=== PATIENT | male | born 2005 | race American Indian/Alaskan Native ===

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

== ENCOUNTER 2025-04-05 13:11 | Emergency (ER) | payer OTHER, SELFPAY ==
--- OUTSIDE RECORDS SUMMARY | 2025-04-04 15:00 | XMS_ITS | Encounter Summary ---
Author Organization [facility] Address [address] [place] [address] Care Team Providers Care Cardiovascular Technologist Name Role Phone Grant Javier MD Primary Care Provider [phone] Reason for Visit * Reason Comments Rash Penis rash Encounter Details Date Type Department Care Team ([facility] Contact Info) Description 04/04/2025 3:00 PM EST Office Visit Walk-In Clinic - [facility] [address] [place], [place] [phone] Stephanie Almonte NP [address] [place] [address], [place] Folliculitis (Primary Dx) Social History Tobacco Use Types Packs/Day Years Used Date Smoking Tobacco: Never Smokeless Tobacco: Never Alcohol Use Standard Drinks/Week Comments Not Asked 0 (1 standard drink = 0.6 oz pur e alcohol) Sex and Gender Information Value Date Recorded Sex Assigned at Not on file Legal Sex Male 6:16 PM EST Gender Identity Not on file Sexual Orientation Not on file documented as of this encounter Last Filed Vital Signs Vital Sign Reading Time Taken Comments Blood Pressure 119/61 04/04/2025 3:13 PM EST Pulse 72 04/04/2025 3:13 PM EST Temperature 37.2 C (98.9 F) 04/04/2025 3:13 PM EST Respiratory Rate 20 04/04/2025 3:13 PM EST Oxygen Saturation 99% 04/04/2025 3:13 PM EST Inhaled Oxygen Concentration - - Weight - - Height - - Body Mass Index - - documented in this encounter Progress Notes * Stephanie Almonte NP - 04/04/2025 3:00 PM EST CHIEF COMPLAINT: Rash (Penis rash) HPI: Ani Wren is a 20 y.o. old male who presents with right groin skin rash. Patient shaves notes small red bumps over the last week ROS: Remainder of the 12 point review of symptoms unremarkable except for those idenitified in the HPI. 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 Mild persistent asthma 2005 Surgical History[1] SOCIAL HISTORY: Social History Tobacco Use Smoking status: Never Smokeless tobacco: Never Substance Use Topics Alcohol use: Not on file FAMILY HISTORY: Family History[2] Family Status Relation Name Status Father Alive 06/04/1978 ani severe asthma /disability social security Other (Not Specified) Other (Not Specified) Other (Not Specified) Son (Not Specified) Mother Alive 06/14/1978 rhea hidalgo/trinid[place] descent Sister Alive 05/03/00 alma fatmata 1/2sib Sister Alive 01/21/1995 emily alatorrearez 1/2 sib Brother Alive 08/09/96 cyndi alatorrearez 1/2sib Sister Alive 19992 sib sammy wren (fathers daughter) No partnership data on file MEDICATIONS DISCONTINUED/REORDERED: There are no discontinued medications. ACTIVE MEDICATIONS: Medications Taking[3] ALLERGIES: Allergies[4] PHYSICAL EXAM: Vitals: 04/04/25 1513 BP: 119/61 Pulse: 72 Resp: 20 Temp: 37.2 ??C (98.9 ??F) TempSrc: Temporal SpO2: 99% CONSTITUTIONAL: alert, calm, cooperative, in no acute distress SKIN: warm and dry small red follicular rash right groin fold negative nodes HEART: S1, S2 normal, regular rate and rhythm, no murmurs, rubs, gallops LUNGS: clear to auscultation bilaterally, no wheezes, rales, rhonchi ABDOMEN: soft, nontender, nondistended, bowel sounds present, no guarding or rigidity, no hepatosplenomegaly PSYCH: mood/affect full range, speech clear, good eye contact, cooperative with exam LABS/IMAGING: IMPRESSION: Folliculitis PLAN: The patient's PMH, problem list and medications were reviewed in reference to the above diagnosis/diagnoses. Dial soap warm compresses patient encouraged to change razor frequently Use aloe based cream when shaving Advised to follow up with PCP if symptoms do not improve. Advised to follow up with UC or PCP immediately for new or worsening symptoms. Educated on red flags symptoms. Advised to go to the ER or call 911 for these symptoms. Patient understands the plan. Patient verbalizes agreement with the plan. No orders of the defined types were placed in this encounter. Stephanie Almonte NP on 04/04/2025 at 3:16 PM EST Today's documentation was made using voice recognition software. This note may contain grammatical errors secondary to this software. [1] Past Surgical History: Procedure Laterality Date CIRCUMCISION, PRIMARY PROCEDURE: HISTORICAL CIRCUMCISION [2] Family History Problem Relation Name Age of Onset Asthma Father severe disability ssi Other (Other: vsd) Other 02/2005 dr solorio needs sbe prophylaxis Other (Other: Other) Other sibs eczema/hay fever Bipolar disorder Other mat aunt/depression Eczema Son [3] Outpatient Medications Marked as Taking for the 04/04/25 encounter (Office Visit) with Stephanie Almonte NP Medication Sig Dispense Refill albuterol HFA (Proventil HFA) 90 mcg/actuation inhaler Inhale 2 puffs by mouth every 4 (four) hoursif needed for shortness of breath or wheezing (Cough). 6.7 g 0 [4] Allergies Allergen Reactions [place] Oil Swelling Facial swelling the day after ingesting almond cake, but he also had face paint on for several hours. Unsure which caused the reaction. documented in this encounter Plan of Treatment Upcoming Encounters Date Type Department Care Team (Late st Contact Info) Description 05/08/2026 8:00 AM EST Office Visit Adult Medicine [facility] [address] [place] [address] Grant Javier MD [address] [place] [address] documented as of this encounter Visit Diagnoses Diagnosis Folliculitis- Primary Other specified disease of hair and hair follicles documented in this encounter Care Teams Cardiovascular Technologist Relationship Specialty Start Date End Date Grant Javier MD [address] [place] [address] PCP - General 11/16/23 documented as of this encounter
[2025-04-05 14:04] VITALS: BP 111/91; PULSE 73; RESP 18; TEMP 36.4; O2SAT 100; BMI 17.9
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
--- OUTSIDE RECORDS SUMMARY | 2025-04-05 14:16 | XMS_ITS | Encounter Summary ---
Author Organization [facility] Address [address] [place] [address] Care Team Providers Care Protective Signal Operations Supervisor Name Role Phone Grant Javier MD Primary Care Provider [phone] Reason for Visit * Reason Onset Date Comments Rash 04/04/2025 genital issue 04/04/2025 Encounter Details Date Type Department Care Team ([facility] st Contact Info) Description 04/04/2025 Telephone Adult Medicine [facility] [address] [place] [address] Grant Javier MD [address] [place] [address] Social History Tobacco Use Types Packs/Day Years [...] on file documented as of this encounter Progress Notes * Patsy Aguirre RN - 04/04/2025 11:49 AM EST Called and spoke with pt. Pt c/o penile rash x two days that is itchy and burning denies any swelling or discharge. Pt is voiding normally. Pt has had recent unprotected sexual encounters. Appt for today in * Clara Orellana - 04/04/2025 10:17 AM EST Patient returned call * Iliana Leiva RN - 04/04/2025 10:08 AM EST Call to pt. Left message for pt to call triage * Preeti Cisse - 04/04/2025 9:47 AM EST Patient call requires triage: Symptoms patient is presenting: mom calling but please call the patient. He has a rash on his penis, burning, itchy. Mom is unsure if he has a discharge. Please advise. How long has patient had these symptoms?: 2 days For ALL patients calling to schedule any appointment (routine, sick visit, follow up, consult, etc.) in the outpatient setting please ask the following questions: Do you have fever of higher than 101, sore throat with difficulty swallowing or severe shortness ofbreath? no If YES to any of these above symptoms, send a message to triage and do not book. Red dot. If no, an audio or video visit should be booked. Have you had close contact with someone with Coronavirus in the last 14 days? no Have you traveled abroad? no Have you traveled recently to another state outside of [place], [place], [place], [place], [place], [place], [place]? no o If yes, did you quarantine for 14 days or have a negative covid test? no If yes to any of the above, patient is not to be scheduled in office until after 14 day quarantine or negative covid test. If pain or injury related was it due to an accident at work or from a motor vehicle accident? If yes, date of accident/Injury: No If yes, gather 3rd alliance party insurance information Third Alliance Party Information: not applicable PCP: Grant Javier MD Payor: [employer] / Plan: [employer] / Product Type: *No Product type* / documented in this encounter Plan of Treatment Upcoming Encounters Date Type Department Care Team (Late st Contact Info) Description 05/08/2026 8:00 AM EST Office Visit Adult Medicine [facility] [address] [place] [address] Grant Javier MD [address] [facility] [place] [address] documented as of this encounter Visit Diagnoses Not on filedocumented in this encounter Care Teams Protective Signal Operations Supervisor Relationship Specialty Start Date End Date Grant Javier MD [address] [facility] [place] [address] PCP - General 11/16/23 documented as of this encounter
--- OUTSIDE RECORDS SUMMARY | 2025-04-05 14:16 | XMS_ITS ---
Author Name [facility] Organization Unknown Care Team Organization Name Specialty Phone Email Start Date End Da te [facility] Termed, PROVIDER Primary Care 08/22/202211/15 [facility] José Luis Garcia Primary Care 06/22/20222023 [facility] Vane Ayala Primary Care 02/22/20222023
[2025-04-05] MEDS: Diphth,Pertus(ACell),Tet Adult 0.5 ML SYRINGE IM (14:24)
[2025-04-05 14:27] VITALS: BP 111/91; PULSE 73; RESP 18; TEMP 36.4; O2SAT 100
== END 2025-04-05 14:27 | disposition home or self-care (01) ==
PROVIDERS: Emergency Provider Emergency Medicine
DX: S01.01XA Laceration without foreign body of scalp, initial encounter (principal); Y00.XXXA Assault by blunt object, initial encounter; Y93.89 Activity, other specified; Y92.89 Other specified places as the place of occurrence of the external cause; Y99.8 Other external cause status; Z23 Encounter for immunization
CPT/HCPCS: 12001; 90471; 90715; 99282; 99284